=== PATIENT | male | born 1960 ===

== ENCOUNTER 2021-12-17 04:36 | Day surgery (SDC) | payer OTHER ==
[2021-12-16 11:28] VITALS: BMI 23.9
[2021-12-17 09:16] VITALS: TEMP 97.5
[2021-12-17 09:41] VITALS: PULSE 71
[2021-12-17 10:13] VITALS: BP 128/72
== END 2021-12-17 10:24 | disposition home or self-care (01) ==
LOC: JASU-ENDO 04:36
PROVIDERS: ATTEND Internal Medicine Gastroenterology
PROC: 0DBN8ZX Excision of Sigmoid Colon, Via Natural or Artificial Opening Endoscopic, Diagnostic (ICD-10-PCS; 2021-12-17)
PROC: 0DBF8ZX Excision of Right Large Intestine, Via Natural or Artificial Opening Endoscopic, Diagnostic (ICD-10-PCS; 2021-12-17)
PROC: 0DBH8ZX Excision of Cecum, Via Natural or Artificial Opening Endoscopic, Diagnostic (ICD-10-PCS; principal; 2021-12-17 08:45)
DX: Z12.11 Encounter for screening for malignant neoplasm of colon (principal); D12.0 Benign neoplasm of cecum; D12.5 Benign neoplasm of sigmoid colon; K64.8 Other hemorrhoids; I10 Essential (primary) hypertension; E11.9 Type 2 diabetes mellitus without complications; Z79.84 Long term (current) use of oral hypoglycemic drugs
CPT/HCPCS: 82962; 88305-TC